=== PATIENT | female | born 1945 | race Caucasian/White ===

== ENCOUNTER 2018-09-14 13:44 | Outpatient (REF) | payer MEDICARE, OTHER, SELFPAY ==
[2018-09-14 18:53] LABS: HCT 41.4 % (36.0-46.0); HGB 13.8 g/dL (12.0-15.5); Mean Corp. HGB Concentration 33.3 g/dL (32.0-36.0); Mean Corpuscular Hemoglobin 28.9 pg (27.0-33.0); Mean Corpuscular Volume 86.8 fL (80-95); Mean Platelet Volume 11.2 fL (8.0-11.0); Platelet Count 238 x1000/uL (130-400); RBC 4.77 m/cumm (4.00-5.20); RBC Distribution Width 13.9 % (11.7-14.6); White Blood Cell Count 7.58 k/cumm (4.4-10.8)
[2018-09-14 19:13] LABS: COMMENT (LAB VIEW ONLY) 96.47 mg/dL
[2018-09-14 19:14] LABS: ALT 33 U/L (12-78); AST 20 U/L (15-37); Albumin 4.1 g/dL (3.4-5.0); Alkaline Phosphatase 93 U/L (46-116); Anion Gap 9.7 mmol/L (3-11); BUN 22 mg/dL (7-18); Bilirubin, Total 0.4 mg/dL (0.2-1.0); CO2 27.3 mmol/L (21.0-32.0); CREATININE 1.01 mg/dL (0.55-1.02); Calcium 9.9 mg/dL (8.5-10.1); Chloride 101 mmol/L (98-107); Estimated GFR 54.03 (mL/min/1.73m2); Glucose 144 mg/dL (70-100); Potassium 4.7 mmol/L (3.5-5.1); Sodium 138 mmol/L (136-145); TSH 0.96 uIU/mL (0.358-3.74); Total Protein 7.4 g/dL (6.4-8.2)
== END 2018-09-14 14:04 ==
LOC: NCHCN 13:44
PROVIDERS: PCP Internal Medicine; Visit Provider Internal Medicine
DX: E10.9 Type 1 diabetes mellitus without complications (principal); K76.0 Fatty (change of) liver, not elsewhere classified; I10 Essential (primary) hypertension; K75.4 Autoimmune hepatitis
CPT/HCPCS: 80053; 85027; 82043; 82570; 84443

== ENCOUNTER 2019-01-22 14:50 | Outpatient (REF) | payer MEDICARE, OTHER, SELFPAY ==
[2019-01-22 19:30] LABS: HCT 40.9 % (36.0-46.0); Mean Corp. HGB Concentration 34.2 g/dL (32.0-36.0); Mean Corpuscular Hemoglobin 29.5 pg (27.0-33.0); Mean Corpuscular Volume 86.3 fL (80-95); Platelet Count 236 x1000/uL (130-400); RBC 4.74 m/cumm (4.00-5.20); RBC Distribution Width 13.5 % (11.7-14.6); White Blood Cell Count 6.22 k/cumm (4.4-10.8)
[2019-01-22 20:19] LABS: ALT 38 U/L (12-78); AST 29 U/L (15-37); Albumin 4.1 g/dL (3.4-5.0); Alkaline Phosphatase 102 U/L (46-116); Anion Gap 8.2 mmol/L (3-11); BUN 26 mg/dL (7-18); Bilirubin, Total 0.5 mg/dL (0.2-1.0); C-Reactive Protein 0.69 mg/dL (0.0-0.3); CO2 27.8 mmol/L (21.0-32.0); CREATININE 1.07 mg/dL (0.55-1.02); Calcium 9.7 mg/dL (8.5-10.1); Chloride 102 mmol/L (98-107); Estimated GFR 50.55 (mL/min/1.73m2); Glucose 118 mg/dL (70-100); Potassium 4.6 mmol/L (3.5-5.1); Sodium 138 mmol/L (136-145); Total Protein 7.2 g/dL (6.4-8.2)
[2019-01-25 09:50] LABS: IgA 174 mg/dL (85-499)
[2019-01-25 21:23] LABS: Tissue Transglutaminase Ab IgA <1.2 U/mL
== END 2019-01-22 15:10 ==
LOC: NCHCN 14:50
PROVIDERS: PCP Internal Medicine; Visit Provider Internal Medicine
DX: E10.9 Type 1 diabetes mellitus without complications (principal); I10 Essential (primary) hypertension; K90.0 Celiac disease; K75.4 Autoimmune hepatitis; M35.3 Polymyalgia rheumatica; N32.81 Overactive bladder; K76.0 Fatty (change of) liver, not elsewhere classified
CPT/HCPCS: 80053; 82784; 85027; 83516; 86140

== ENCOUNTER 2019-12-09 22:17 | Outpatient (REF) | payer MEDICARE, OTHER, SELFPAY ==
[2019-12-09 19:19] LABS: HCT 40.6 % (36.0-46.0); HGB 13.7 g/dL (12.0-15.5); Mean Corp. HGB Concentration 33.7 g/dL (32.0-36.0); Mean Corpuscular Hemoglobin 29.1 pg (27.0-33.0); Mean Corpuscular Volume 86.4 fL (80-95); Platelet Count 271 x1000/uL (130-400); RBC Distribution Width 13.1 % (11.7-14.6); White Blood Cell Count 6.81 k/cumm (4.4-10.8)
[2019-12-09 19:34] LABS: ALT 36 U/L (14-59); AST 29 U/L (15-37); Albumin 4.1 g/dL (3.4-5.0); Alkaline Phosphatase 98 U/L (46-116); Anion Gap 8.5 mmol/L (3-11); BUN 25 mg/dL (7-18); Bilirubin, Total 0.6 mg/dL (0.2-1.0); CO2 28.5 mmol/L (21.0-32.0); CREATININE 1.21 mg/dL (0.55-1.02); Calcium 9.4 mg/dL (8.5-10.1); Chloride 103 mmol/L (98-107); Estimated GFR 43.74 (mL/min/1.73m2); Glucose 142 mg/dL (74-106); Potassium 4.8 mmol/L (3.5-5.1); Sodium 140 mmol/L (136-145); Total Protein 7.2 g/dL (6.4-8.2)
== END 2019-12-09 22:37 ==
LOC: NCHCN 22:17
PROVIDERS: PCP Internal Medicine; Visit Provider Internal Medicine
DX: E10.9 Type 1 diabetes mellitus without complications (principal); K75.4 Autoimmune hepatitis; K76.0 Fatty (change of) liver, not elsewhere classified; M77.42 Metatarsalgia, left foot
CPT/HCPCS: 80053; 85027

== ENCOUNTER 2020-07-05 18:21 | Outpatient (REF) | payer MEDICARE, OTHER, SELFPAY ==
[2020-07-05 21:49] LABS: HCT 40.2 % (36.0-46.0); HGB 13.5 g/dL (11.2-15.7); MCH 29.3 pg (27.0-33.0); MCHC 33.6 % (32.0-36.0); MCV 87.4 fL (80-95); MPV 11.3 fL (8.0-11.0); Platelet Count 211 10^3/uL (130-400); RDW 13.3 % (11.7-14.6); RDW-SD 42.6 fL; WBC 6.17 10^3/uL (4.4-10.8)
[2020-07-05 22:06] LABS: ALT 29 U/L (14-59); AST 18 U/L (15-37); Albumin 4.1 g/dL (3.4-5.0); Alkaline Phosphatase 82 U/L (46-116); Anion Gap 6.1 mmol/L (3-11); BUN 24 mg/dL (7-18); Bilirubin, Total 0.7 mg/dL (0.2-1.0); CO2 26.9 mmol/L (21.0-32.0); CREATININE 1.14 mg/dL (0.55-1.02); Calcium 9.2 mg/dL (8.5-10.1); Chloride 104 mmol/L (98-107); Estimated GFR 46.72 (mL/min/1.73m2); Glucose 173 mg/dL (74-106); Sodium 137 mmol/L (136-145)
[2020-07-06 16:52] LABS: Rheumatoid Factor <8.6 IU/mL (<12.0)
[2020-07-07 09:21] LABS: Cyclic Citrullinated Peptide <2.5 U/mL (<5.0)
== END 2020-07-05 18:41 ==
LOC: NCHCN 18:21
PROVIDERS: PCP Internal Medicine; Visit Provider Internal Medicine
DX: E10.9 Type 1 diabetes mellitus without complications (principal); K75.4 Autoimmune hepatitis; M19.90 Unspecified osteoarthritis, unspecified site; L57.0 Actinic keratosis
CPT/HCPCS: 80053; 85027; 86200; 86431

== ENCOUNTER 2021-01-04 22:29 | Outpatient (REF) | payer MEDICARE, OTHER, SELFPAY ==
[2021-01-04 15:15] LABS: ALT 31 U/L (14-59); AST 19 U/L (15-37); Alkaline Phosphatase 95 U/L (46-116); Anion Gap 7.7 mmol/L (3-11); BUN 31 mg/dL (7-18); Bilirubin, Total 0.5 mg/dL (0.2-1.0); CO2 27.3 mmol/L (21.0-32.0); CREATININE 1.1 mg/dL (0.55-1.02); Calcium 9.6 mg/dL (8.5-10.1); Chloride 103 mmol/L (98-107); Estimated GFR 48.69 (mL/min/1.73m2); Glucose 115 mg/dL (74-106); Potassium 4.4 mmol/L (3.5-5.1); Sodium 138 mmol/L (136-145); Total Protein 7.4 g/dL (6.4-8.2)
[2021-01-04 15:16] LABS: HCT 39.6 % (36.0-46.0); HGB 13.7 g/dL (11.2-15.7); MCH 29.5 pg (27.0-33.0); MCHC 34.6 % (32.0-36.0); MCV 85.3 fL (80-95); MPV 10.7 fL (8.0-11.0); Platelet Count 194 10^3/uL (130-400); RBC 4.64 10^6/uL (3.93-5.22); RDW 13.1 % (11.7-14.6); RDW-SD 40.9 fL; WBC 6.56 10^3/uL (4.4-10.8)
== END 2021-01-04 22:30 | disposition home or self-care (01) ==
LOC: NCHCN 22:29
PROVIDERS: PCP Internal Medicine; Visit Provider Internal Medicine
DX: E10.9 Type 1 diabetes mellitus without complications (principal); I10 Essential (primary) hypertension; E03.9 Hypothyroidism, unspecified; K75.4 Autoimmune hepatitis
CPT/HCPCS: 80053; 85027

== ENCOUNTER 2021-04-04 18:11 | Outpatient (REF) | payer MEDICARE, OTHER, SELFPAY ==
[2021-04-04 16:55] LABS: COMMENT (LAB VIEW ONLY) 75.63 mg/dL; Microalb ug/mg Crea 79.6 ug/mg Cr
== END 2021-04-04 18:12 | disposition home or self-care (01) ==
LOC: NCHCN 18:11
PROVIDERS: PCP Internal Medicine; Visit Provider Internal Medicine
DX: E10.9 Type 1 diabetes mellitus without complications (principal); Z79.4 Long term (current) use of insulin
CPT/HCPCS: 82043; 82570

== ENCOUNTER 2021-05-28 12:42 | Outpatient (REF) | payer MEDICARE, OTHER, SELFPAY ==
[2021-05-28 20:08] LABS: ALT 45 U/L (14-59); Calculated LDL 74 mg/dL (<100); Cholesterol 159 mg/dL (<200); HDL Cholesterol 59 mg/dL (40-60); Triglyceride 134 mg/dL (<150)
== END 2021-05-28 12:43 | disposition home or self-care (01) ==
LOC: NCHCN 12:42
PROVIDERS: PCP Internal Medicine; Visit Provider Internal Medicine
DX: E78.5 Hyperlipidemia, unspecified (principal); I10 Essential (primary) hypertension
CPT/HCPCS: 80061; 84460

== ENCOUNTER 2021-07-05 17:35 | Outpatient (REF) | payer MEDICARE, OTHER, SELFPAY ==
[2021-07-05 19:01] LABS: ALT 38 U/L (14-59); AST 27 U/L (15-37); Albumin 4.1 g/dL (3.4-5.0); Alkaline Phosphatase 139 U/L (46-116); Anion Gap 10.2 mmol/L (3-11); BUN 27 mg/dL (7-18); Bilirubin, Total 0.4 mg/dL (0.2-1.0); CO2 27.8 mmol/L (21.0-32.0); CREATININE 1.1 mg/dL (0.55-1.02); Calcium 9.5 mg/dL (8.5-10.1); Calculated LDL 77 mg/dL (<100); Chloride 103 mmol/L (98-107); Cholesterol 180 mg/dL (<200); Estimated GFR 48.55 (mL/min/1.73m2); Glucose 115 mg/dL (74-106); HDL Cholesterol 56 mg/dL (40-60); Potassium 4.8 mmol/L (3.5-5.1); Sodium 141 mmol/L (136-145); Total Protein 7.2 g/dL (6.4-8.2); Triglyceride 238 mg/dL (<150)
== END 2021-07-05 17:36 | disposition home or self-care (01) ==
LOC: NCHCN 17:35
PROVIDERS: PCP Internal Medicine; Visit Provider Internal Medicine
DX: I65.23 Occlusion and stenosis of bilateral carotid arteries (principal); K75.4 Autoimmune hepatitis; E10.9 Type 1 diabetes mellitus without complications
CPT/HCPCS: 80053; 80061

== ENCOUNTER 2022-06-05 15:05 | Outpatient (REF) | payer MEDICARE, OTHER, SELFPAY ==
[2022-06-05 20:15] LABS: HGB 13.6 g/dL (11.2-15.7); MCH 29.3 pg (27.0-33.0); MCV 86 fL (80-95); MPV 11.5 fL (8.0-11.0); Platelet Count 226 10^3/uL (130-400); RBC 4.64 10^6/uL (3.93-5.22); RDW 13.1 % (11.7-14.6); RDW-SD 40.8 fL; WBC 7.46 10^3/uL (4.4-10.8)
[2022-06-05 20:32] LABS: ALT 41 U/L (14-59); AST 22 U/L (15-37); Alkaline Phosphatase 100 U/L (46-116); Anion Gap 10.5 mmol/L (3-11); BUN 30 mg/dL (7-18); Bilirubin, Total 0.6 mg/dL (0.2-1.0); CO2 25.5 mmol/L (21.0-32.0); CREATININE 1.2 mg/dL (0.55-1.02); Calcium 9.1 mg/dL (8.5-10.1); Calculated LDL 80 mg/dL (<100); Chloride 104 mmol/L (98-107); Cholesterol 161 mg/dL (<200); Glucose 123 mg/dL (74-106); HDL Cholesterol 55 mg/dL (40-60); Potassium 4.9 mmol/L (3.5-5.1); Sodium 140 mmol/L (136-145); TSH 0.26 uIU/mL (0.36-3.74); Total Protein 7.4 g/dL (6.4-8.2); Triglyceride 133 mg/dL (<150)
== END 2022-06-05 15:06 | disposition home or self-care (01) ==
LOC: NCHCN 15:05
PROVIDERS: PCP Internal Medicine; Referring Provider Internal Medicine; Visit Provider Internal Medicine
DX: E03.9 Hypothyroidism, unspecified (principal); K75.4 Autoimmune hepatitis
CPT/HCPCS: 80053; 80061; 85027; 84443

== ENCOUNTER 2022-12-13 17:56 | Outpatient (REF) | payer MEDICARE, OTHER, SELFPAY ==
[2022-12-13 19:23] LABS: HCT 40.1 % (36.0-46.0); HGB 13.4 g/dL (11.2-15.7); MCH 29.1 pg (27.0-33.0); MCHC 33.4 % (32.0-36.0); MCV 87 fL (80-95); Platelet Count 206 10^3/uL (130-400); RDW-SD 40.8 fL; WBC 6.72 10^3/uL (4.4-10.8)
[2022-12-13 19:48] LABS: ALT 38 U/L (14-59); AST 28 U/L (15-37); Albumin 4.2 g/dL (3.4-5.0); Alkaline Phosphatase 121 U/L (46-116); Bilirubin, Direct 0.1 mg/dL (0.0-0.2); Bilirubin, Total 0.4 mg/dL (0.2-1.0); Total Protein 7.4 g/dL (6.4-8.2)
== END 2022-12-13 17:57 | disposition home or self-care (01) ==
LOC: NCHCN 17:56
PROVIDERS: PCP Internal Medicine; Visit Provider Internal Medicine
DX: K76.0 Fatty (change of) liver, not elsewhere classified (principal); D18.03 Hemangioma of intra-abdominal structures; Z00.00 Encounter for general adult medical examination without abnormal findings
CPT/HCPCS: 80076; 85027

== ENCOUNTER 2023-06-23 15:18 | Outpatient (REF) | payer MEDICARE, OTHER, SELFPAY ==
[2023-06-23 19:19] LABS: HCT 40.9 % (36.0-46.0); MCH 29.5 pg (27.0-33.0); MCHC 34.2 % (32.0-36.0); MCV 86 fL (80-95); MPV 10.9 fL (8.0-11.0); Platelet Count 246 10^3/uL (130-400); RBC 4.74 10^6/uL (3.93-5.22); RDW 13.2 % (11.7-14.6); RDW-SD 41.4 fL; WBC 7.92 10^3/uL (4.4-10.8)
[2023-06-23 19:37] LABS: ALT 36 U/L (14-59); AST 27 U/L (15-37); Albumin 4.1 g/dL (3.4-5.0); Alkaline Phosphatase 118 U/L (46-116); Anion Gap 7.4 mmol/L (3-11); BUN 34 mg/dL (7-18); Bilirubin, Total 0.6 mg/dL (0.2-1.0); CO2 27.6 mmol/L (21.0-32.0); CREATININE 1.8 mg/dL (0.55-1.02); Calcium 9.7 mg/dL (8.5-10.1); Calculated LDL 84 mg/dL (<100); Chloride 100 mmol/L (98-107); Cholesterol 165 mg/dL (<200); Estimated GFR 28.84 (mL/min/1.73m2); Glucose 117 mg/dL (74-106); HDL Cholesterol 53 mg/dL (40-60); Potassium 5.3 mmol/L (3.5-5.1); Sodium 135 mmol/L (136-145); Total Protein 7.7 g/dL (6.4-8.2); Triglyceride 141 mg/dL (<150)
== END 2023-06-23 15:19 | disposition home or self-care (01) ==
LOC: NCHCN 15:18
PROVIDERS: PCP Internal Medicine; Visit Provider Internal Medicine
DX: E10.9 Type 1 diabetes mellitus without complications (principal); I10 Essential (primary) hypertension; R42 Dizziness and giddiness; K75.4 Autoimmune hepatitis
CPT/HCPCS: 80053; 80061; 85027

== ENCOUNTER 2023-07-03 11:17 | Outpatient (REF) | payer MEDICARE, OTHER, SELFPAY ==
[2023-07-03 19:17] LABS: Anion Gap 10.2 mmol/L (3-11); BUN 30 mg/dL (7-18); CO2 25.8 mmol/L (21.0-32.0); CREATININE 1.3 mg/dL (0.55-1.02); Calcium 9.8 mg/dL (8.5-10.1); Chloride 102 mmol/L (98-107); Estimated GFR 42.62 (mL/min/1.73m2); Glucose 133 mg/dL (74-106); Potassium 4.2 mmol/L (3.5-5.1); Sodium 138 mmol/L (136-145)
[2023-07-03 19:23] LABS: COMMENT (LAB VIEW ONLY) 111.62 mg/dL
[2023-07-03 19:25] LABS: Microalb ug/mg Crea 101.9 ug/mg Cr
== END 2023-07-03 11:18 | disposition home or self-care (01) ==
LOC: NCHCN 11:17
PROVIDERS: PCP Internal Medicine; Visit Provider Internal Medicine
DX: E87.5 Hyperkalemia (principal); R94.4 Abnormal results of kidney function studies; E10.9 Type 1 diabetes mellitus without complications
CPT/HCPCS: 80048; 82043; 82570

== ENCOUNTER 2023-09-25 13:37 | Outpatient (REF) | payer MEDICARE, OTHER, SELFPAY ==
[2023-09-25 18:47] LABS: Abs Immature Grans 0.01 10^3/uL (0.0-0.06); Absolute Basophil Count 0.13 10^3/uL (0.0-0.2); Absolute Eosinophil Count 0.45 10^3/uL (0.0-0.7); Absolute Lymphocyte Count 1.15 10^3/uL (1.2-3.4); Absolute Monocyte Count 0.73 10^3/uL (0.1-0.8); Absolute Neutrophil Count 5.16 10^3/uL (1.2-6.7); Basophils % 1.7; Eosinophils % 5.9; HCT 40.3 % (36.0-46.0); Immature Grans % 0.1; Lymphocytes % 15.1; MCH 29.5 pg (27.0-33.0); MCHC 34.7 % (32.0-36.0); MCV 85 fL (80-95); Monocytes % 9.6; Neutrophils % 67.6; Platelet Count 253 10^3/uL (130-400); RBC 4.75 10^6/uL (3.93-5.22); RDW 12.7 % (11.7-14.6); RDW-SD 39.1 fL; WBC 7.63 10^3/uL (4.4-10.8)
[2023-09-25 19:05] LABS: ALT 48 U/L (14-59); AST 30 U/L (15-37); Albumin 4.1 g/dL (3.4-5.0); Alkaline Phosphatase 146 U/L (46-116); BUN 26 mg/dL (7-18); Bilirubin, Total 0.5 mg/dL (0.2-1.0); CREATININE 1.3 mg/dL (0.55-1.02); Calcium 10.1 mg/dL (8.5-10.1); Chloride 101 mmol/L (98-107); Estimated GFR 42.62 (mL/min/1.73m2); Glucose 182 mg/dL (74-106); Potassium 4.2 mmol/L (3.5-5.1); Sodium 137 mmol/L (136-145); Total Protein 7.7 g/dL (6.4-8.2)
[2023-09-25 19:23] LABS: FREE T4 1.25 ng/dL (0.76-1.46)
== END 2023-09-25 13:38 | disposition home or self-care (01) ==
LOC: NCHCN 13:37
PROVIDERS: PCP Internal Medicine; Visit Provider Internal Medicine
DX: I10 Essential (primary) hypertension (principal); F32.9 Major depressive disorder, single episode, unspecified
CPT/HCPCS: 80053; 84439; 84443; 85025

== ENCOUNTER 2024-05-06 15:38 | Outpatient (REF) | payer MEDICARE, OTHER, SELFPAY ==
[2024-05-06 19:09] LABS: HCT 39.5 % (36.0-46.0); HGB 13.8 g/dL (11.2-15.7); MCH 30.4 pg (27.0-33.0); MCHC 34.9 % (32.0-36.0); MCV 87 fL (80-95); Platelet Count 212 10^3/uL (130-400); RBC 4.54 10^6/uL (3.93-5.22); WBC 6.83 10^3/uL (4.4-10.8)
[2024-05-06 19:19] LABS: ALT 41 U/L (14-59); AST 23 U/L (15-37); Albumin 3.9 g/dL (3.4-5.0); Alkaline Phosphatase 130 U/L (46-116); Anion Gap 8.8 mmol/L (3-11); BUN 38 mg/dL (7-18); Bilirubin, Total 0.46 mg/dL (0.2-1.0); CO2 27.2 mmol/L (21.0-32.0); CREATININE 1.2 mg/dL (0.55-1.02); Calcium 9.6 mg/dL (8.5-10.1); Chloride 104 mmol/L (98-107); Estimated GFR 46.62 (mL/min/1.73m2); Glucose 77 mg/dL (74-106); Potassium 4.5 mmol/L (3.5-5.1); Sodium 140 mmol/L (136-145); Total Protein 7.5 g/dL (6.4-8.2)
== END 2024-05-06 15:39 | disposition home or self-care (01) ==
LOC: NCHCN 15:38
PROVIDERS: PCP Internal Medicine; Visit Provider Internal Medicine
DX: K75.4 Autoimmune hepatitis (principal)
CPT/HCPCS: 80053; 85027

== ENCOUNTER 2025-02-23 21:13 | Outpatient (REF) | payer MEDICARE, OTHER, SELFPAY ==
[2025-02-23 22:13] LABS: COMMENT (LAB VIEW ONLY) 89.81 mg/dL
== END 2025-02-23 21:14 | disposition home or self-care (01) ==
LOC: NCHCN 21:13
PROVIDERS: PCP Internal Medicine; Visit Provider Internal Medicine
DX: E10.9 Type 1 diabetes mellitus without complications (principal)
CPT/HCPCS: 82043; 82570

== ENCOUNTER 2025-05-26 17:21 | Outpatient (REF) | payer MEDICARE, OTHER, SELFPAY ==
[2025-05-26 20:03] LABS: ALT 43 U/L (14-59); AST 31 U/L (15-37); Albumin 4.2 g/dL (3.4-5.0); Alkaline Phosphatase 131 U/L (46-116); Anion Gap 7.5 mmol/L (3-11); BUN 25 mg/dL (7-18); Bilirubin, Total 0.5 mg/dL (0.2-1.0); CO2 27.5 mmol/L (21.0-32.0); Calcium 10.0 mg/dL (8.5-10.1); Calculated LDL 91 mg/dL (<100); Chloride 97 mmol/L (98-107); Cholesterol 181 mg/dL (<200); Estimated GFR 57.66 (mL/min/1.73m2); Glucose 119 mg/dL (74-106); HDL Cholesterol 65 mg/dL (>or=50); Potassium 4.6 mmol/L (3.5-5.1); Sodium 132 mmol/L (136-145); TSH 0.31 uIU/mL (0.36-3.74); Total Protein 7.6 g/dL (6.4-8.2); Triglyceride 127 mg/dL (<150)
== END 2025-05-26 17:22 | disposition home or self-care (01) ==
LOC: NCHCN 17:21
PROVIDERS: PCP Internal Medicine; Visit Provider Internal Medicine
DX: I10 Essential (primary) hypertension (principal); K80.50 Calculus of bile duct without cholangitis or cholecystitis without obstruction; E03.9 Hypothyroidism, unspecified
CPT/HCPCS: 80053; 80061; 84443

== ENCOUNTER 2025-06-09 19:22 | Outpatient (REF) | payer MEDICARE, OTHER, SELFPAY ==
[2025-06-09 19:13] LABS: HCT 38.3 % (36.0-46.0); HGB 13.3 g/dL (11.2-15.7); MCH 30.1 pg (27.0-33.0); MCHC 34.7 % (32.0-36.0); MCV 87 fL (80-95); MPV 10.3 fL (8.0-11.0); Platelet Count 229 10^3/uL (130-400); RBC 4.42 10^6/uL (3.93-5.22); RDW 12.3 % (11.7-14.6); RDW-SD 39.3 fL; WBC 6.60 10^3/uL (4.4-10.8)
== END 2025-06-09 19:23 | disposition home or self-care (01) ==
LOC: NCHCN 19:22
PROVIDERS: PCP Internal Medicine; Visit Provider Internal Medicine
DX: E03.9 Hypothyroidism, unspecified (principal)
CPT/HCPCS: 85027